=== PATIENT | female | born 1995 | race African-American/Black ===

== ENCOUNTER 2025-05-27 18:33 | Emergency (ER) | payer SELFPAY ==
[2025-05-27 19:02] VITALS: BP 118/88; PULSE 74; RESP 17; TEMP 98.4; BMI 34.0
== END 2025-05-27 20:08 | disposition home or self-care (01) ==
LOC: JERFT 18:33
DX: R22.0 Localized swelling, mass and lump, head (principal); K08.89 Other specified disorders of teeth and supporting structures
CPT/HCPCS: 99283-25